=== PATIENT | female | born 1940 | race Caucasian/White ===

== ENCOUNTER 2019-09-28 19:33 | Inpatient (IN) | payer MEDICARE ==
[~2019-09-28] VITALS: Ht 165.1 cm; Wt 88.6 kg
--- NOTE | 2019-09-28 20:06 | PHYS DOC ---
Past History Past Medical History: Dementia, High Cholesterol, Hypertension Past Surgical History: No Surgical History Alcohol Use: None Drug Use: None Adult General Chief Complaint Chief Complaint: PSYCH EVALUATION HPI HPI Patient is a 79-year-old female who presents to the emergency department for evaluation. According to her daughter, she has a history of dementia, and since her about a month ago she has gradually been declining with mendyi isa sundowners. She tried staying with a family member but the family member was unable to care for them. She was thus placed in assisted living facility but became combative at times, exhibiting worsening signs of dementia. She was referred to the [facility] behavioral health unit, and presents to the emergency department for medical clearance this. She has no complaints, but is not able to provide any history due to underlying dementia Review of Systems Review of Systems Unable to provide review of systems secondary to dementia. Allergies Allergies Allergies Coded Allergies Type Severity Reaction Last Updated Verified No Known Drug Allergies 09/28/19 No Physical Exam Physical Exam PHYSICAL EXAM: CONSTITUTIONAL: Well developed, well nourished HEAD: normocephalic, atraumatic EENT: PERRL, EOMI. Conjunctivae normal color, sclerae non-icteric; moist mucous membranes. NECK: Supple, non-tender; no meningismus. LUNGS: Lungs CTA, breathing even and unlabored. Normal air movement. HEART: Regular rate and rhythm, no murmur CHEST: No deformity; non-tender ABDOMEN: The abdomen is soft, and non-tender, no masses or bruits. EXTREM: Normal ROM; no deformity, no calf tenderness. Normal pulses palpable in all extremities. There is no pedal edema. SKIN: No rash; no diaphoresis NEURO: Alert; normal speech, impaired cognition consistent with dementia; CN's grossly intact; strength grossly intact without focal deficit. BACK: No CVA TTP. Current Patient Data Vital Signs Vital Signs Date Time Temp Pulse Resp B/P (MAP) Pulse Ox O2 Delivery O2 Flow Rate FiO2 09/28/19 19:51 98.1 68 18 100 Room Air 09/28/19 19:49 155/76 (102) Lab Results Laboratory Tests Test 09/28/19 20:12 09/28/19 20:48 White Blood Count 10.8 x10^3/uL Red Blood Count 4.46 x10^6/uL Hemoglobin 13.6 g/dL Hematocrit 41.2 % Mean Corpuscular Volume 93 fL Mean Corpuscular Hemoglobin 30 pg Mean Corpuscular Hemoglobin Concent 33 g/dL Red Cell Distribution Width 13.0 % Platelet Count 343 x10^3/uL Neutrophils (%) (Auto) 66 % Lymphocytes (%) (Auto) 20 % Monocytes (%) (Auto) 14 % Eosinophils (%) (Auto) 0 % Basophils (%) (Auto) 0 % Neutrophils # (Auto) 7.1 x10^3uL Lymphocytes # (Auto) 2.2 x10^3/uL Monocytes # (Auto) 1.5 x10^3/uL Eosinophils # (Auto) 0.0 x10^3/uL Basophils # (Auto) 0.0 x10^3/uL Sodium Level 137 mmol/L Potassium Level 3.6 mmol/L Chloride Level 102 mmol/L Carbon Dioxide Level 25 mmol/L Anion Gap 10 Blood Urea Nitrogen 20 mg/dL Creatinine 1.0 mg/dL Estimated GFR (Cockcroft-Gault) 53.2 BUN/Creatinine Ratio 20 Glucose Level 173 mg/dL Calcium Level 9.1 mg/dL Magnesium Level 2.0 mg/dL Total Bilirubin 0.3 mg/dL Aspartate Amino Transf (AST/SGOT) 18 U/L Alanine Aminotransferase (ALT/SGPT) 23 U/L Alkaline Phosphatase 76 U/L Total Protein 7.4 g/dL Albumin 2.9 g/dL Albumin/Globulin Ratio 0.6 Urine Collection Type U cath Urine Color Yellow Urine Clarity Clear Urine pH 5.5 Urine Specific Norris >=1.030 Urine Protein Trace Urine Glucose (UA) Neg mg/dL Urine Ketones (Stick) 15 mg/dL Urine Blood Mod Urine Nitrite Neg Urine Bilirubin Neg Urine Urobilinogen Dipstick 1 mg/dL Urine Leukocyte Esterase Neg Urine RBC 6-10 /HPF Urine WBC Occ /HPF Urine Squamous Epithelial Cells Few /LPF Urine Bacteria 0 /HPF Urine Mucus Slight /LPF EKG EKG Normal sinus rhythm at a rate of 72 beats for minute, left axis deviation with APCs, left ventricular hypertrophy with repolarization abnormality, with no acute ischemic ST/T changes. Radiology/Procedures Radiology/Procedures [] Course & Med Decision Making Course & Med Decision Making Pertinent Lab studies reviewed. (See chart for details) [] Dragon Disclaimer Dragon Disclaimer This electronic medical record was generated, in whole or in part, using a voice recognition dictation system. Departure Departure: Impression: Primary Impression: Dementia with behavioral disturbance Disposition: ADMITTED INPATIENT ([facility]) Condition: STABLE Referrals: NON,STAFF (PCP) KATIANA GALDAMEZ MD Sep 28, 2019 20:06
[2019-09-28 20:25] LABS: BASO % 0 % (0-3); EOS % 0 % (0-3); HEMATOCRIT 41.2 % (36.0-47.0); HEMOGLOBIN 13.6 g/dL (12.0-15.5); LYMPH # 2.2 x10^3/uL (1.0-4.8); LYMPH % 20 % (24-48); MEAN CORPUSCULAR HEMOGLOBIN 30 pg (25-35); MEAN CORPUSCULAR HGB CONC 33 g/dL (31-37); MEAN CORPUSCULAR VOLUME 93 fL (79-100); MONO # 1.5 x10^3/uL (0.0-1.1); MONO % 14 % (0-9); NEUT # 7.1 x10^3uL (1.8-7.7); NEUT % 66 % (31-73); PLATELET COUNT 343 x10^3/uL (140-400); RED BLOOD COUNT 4.46 x10^6/uL (3.50-5.40); WHITE BLOOD COUNT 10.8 x10^3/uL (4.0-11.0)
[2019-09-28 20:38] LABS: ALBUMIN 2.9 g/dL (3.4-5.0); ALBUMIN/GLOBULIN RATIO 0.6 (1.0-1.7); CALCIUM 9.1 mg/dL (8.5-10.1); GFR 53.2; POTASSIUM 3.6 mmol/L (3.5-5.1); TOTAL BILIRUBIN 0.3 mg/dL (0.2-1.0); TOTAL PROTEIN 7.4 g/dL (6.4-8.2)
[2019-09-28 21:17] LABS: BILIRUBIN,URINE NEG (NEG); CLARITY,URINE CLEAR; COLOR,URINE YELLOW; GLUCOSE,URINE NEG (NEG)
[2019-09-28 21:18] LABS: BACTERIA,URINE 0 /HPF (0-FEW); NITRITE,URINE NEG (NEG); SQUAMOUS EPITHELIAL CELL,UR FEW /LPF; UROBILINOGEN,URINE 1 mg/dL (0.2 mg/dL); WBC,URINE OCC /HPF (0-4)
--- NOTE | 2019-09-28 22:00 | NUR ---
Admission Note with Justification for Admission to [facility] Patient admitted to [facility] for protective oversight for emergency stabilization of acute psychiatric crisis. Pt admitted from: Hospital ER Mode of arrival: EMS Accompanied By: [facility] Staff Precipitating behaviors that initiated intake and admission:hitting and pushing staff, refusing food and cares, exit seeking Description of failure of out patient attempts at stabilization in previous setting list behavior and medication trials:medication changes Behaviors and assessment findings upon admission: non-verbal, calm, cooperative with assessment, occasionally laughed Plan: Admit for protective oversight for adjustment and stabilization of medications, behaviors and mood. Intense treatment regimen including groups, medication adjustments, therapy, consistent regimen for ADL's, self care, and sleep hygiene. Daily monitoring by Inpatient staff, Psychiatry, and Medical Physician.
[2019-09-28] MEDS ORDERED: HALO2TAB PO (22:26)
[2019-09-28] MEDS ORDERED: ATEN50TA PO (22:26)
[2019-09-28] MEDS ORDERED: TRAZ-120 PO (22:26)
[2019-09-28] MEDS ORDERED: ACETAMINOPHEN 325 MG TABLET PO PRN (22:30)
[2019-09-28] MEDS ORDERED: MAGNESIUM HYDROXIDE 2,400 MG/30 ML ORAL.SUSP. PO PRN (22:30)
[2019-09-28] MEDS ORDERED: MAG HYDROX/AL HYDROX/SIMETH 30 ML ORAL.SUSP PO PRN (22:30)
[2019-09-28] MEDS ORDERED: METHYL SALICYLATE/MENTHOL TOPICAL OINTMENT 57GM TUBE. TP PRN (22:30)
[2019-09-28 22:34] VITALS: BP 143/77
--- NOTE | 2019-09-29 01:50 | EKG ---
[address] [address] Test Date: 2019-09-28 Test Time: 20:00:04 Pat Name: MALORIE JON Department: Room: Gender: F Mascara Molder: : 1940 Requested By: KATIANA GALDAMEZ Order Number: [id number] Reading MD: Measurements Intervals Mitchell Rate: 72 P: 43 GA: 140 QRS: -24 QRSD: 96 T: 137 QT: 388 QTc: 426 Interpretive Statements SINUS RHYTHM ATRIAL PREMATURE COMPLEX(ES) LEFTWARD AXIS LVH WITH REPOLARIZATION ABNORMALITY ABNORMAL ECG RI6.01 No previous ECG available for comparison
[2019-09-29 06:02] VITALS: BP 153/81
[2019-09-29 07:17] LABS: BASO % 0 % (0-3); EOS # 0.1 x10^3/uL (0.0-0.7); EOS % 1 % (0-3); HEMATOCRIT 41.1 % (36.0-47.0); HEMOGLOBIN 13.5 g/dL (12.0-15.5); LYMPH # 2.5 x10^3/uL (1.0-4.8); LYMPH % 26 % (24-48); MEAN CORPUSCULAR HEMOGLOBIN 30 pg (25-35); MEAN CORPUSCULAR HGB CONC 33 g/dL (31-37); MEAN CORPUSCULAR VOLUME 91 fL (79-100); MONO # 1.3 x10^3/uL (0.0-1.1); MONO % 13 % (0-9); NEUT # 5.8 x10^3uL (1.8-7.7); NEUT % 60 % (31-73); PLATELET COUNT 354 x10^3/uL (140-400); RED BLOOD COUNT 4.52 x10^6/uL (3.50-5.40); RED CELL DISTRIBUTION WIDTH 12.9 % (11.5-14.5); WHITE BLOOD COUNT 9.7 x10^3/uL (4.0-11.0)
[2019-09-29 07:24] LABS: ALBUMIN 2.8 g/dL (3.4-5.0); ALBUMIN/GLOBULIN RATIO 0.6 (1.0-1.7); CALCIUM 9.3 mg/dL (8.5-10.1); CREATININE 0.8 mg/dL (0.6-1.0); GFR 68.8; MAGNESIUM 1.9 mg/dL (1.8-2.4); POTASSIUM 3.4 mmol/L (3.5-5.1); TOTAL BILIRUBIN 0.5 mg/dL (0.2-1.0); TOTAL PROTEIN 7.3 g/dL (6.4-8.2)
[2019-09-29] MEDS: ATENOLOL 50 MG TABLET PO SCH (08:42)
[2019-09-29] MEDS ORDERED: HALOPERIDOL 1 MG TABLET PO SCH (09:00)
--- NOTE | 2019-09-29 13:40 | NUR ---
PSYCHOSOCIAL ASSESSMENT ADMISSION DATE: 09/28/19 CONTACT INFORMATION: DPOA/Guardian Contact Name: Lana Otero Contact Address: [place] [address] Contact Phone #: ETHNIC ORIGIN: REASONS FOR ADMISSION: Aggressive Combative Confusion/Disoriented Poor impulse control ADDITIONAL ADMISSION COMMENTS: According to the intake, pt hit staff during the shower, pushing others, refusing cares, refusing to eat/drink, exit seeking looking for her "Dad". REASON FOR ADMISSION IN PATIENT/FAMILY'S OWN WORDS: She has had a lot of changes in the last month to month in a half. Just not coping well and having behaviors. PATIENT/FAMILY EXPECTATIONS FOR ADMISSION: Medication and behavioral management LIVING SITUATION: Patient lives with: Assisted Living Other living arrangements: Contact Name: Alecia Reina Contact Address: [address]; [place] [address] Contact Phone #: Contact Fax #: FAMILY RELATIONS: Marital Status: # of Marriages: 1 # of Children: [address] [facility] Family Support: Concerned Involved in [place] Planning Additional Comments r/t Family: Pt was to her , whom she called "Dad" for over 66 years. Pt her at the age of 13. Pt ended up and didn't finish her high school year. Pt had 4 children 3 girls and 1 son, in which her son has passed due to a bad head injury. All 3 daughters are highly involved. Pt August 20 from a sudden heart attack. SIGNIFICANT PSYCHIATRIC/MEDICAL HISTORY: Psychiatric/Treatment History: This is pt first psychiatric admission anywhere. Pt was dx with Alzheimers by a neurologist 10 years ago. Pertinent Family History: Pt family has more medical concerns: cancer and heart trouble but no Dementia hx. HISTORICAL DATA: Childhood Environment: Other-see below Childhood Environment Additional Comments: Pt dtr couldn't describe pt childhood, but was able to report that pt was one of 3 children. Both of pt brothers have passed: 1 from Cancer and the other from 1 a heart attack. Pt father at the age of 40 from Lung Cancer and her Mother at 68 from Cancer (type unknown). Psychological Abuse: None Additional Comments: Drug Abuse History last 12 months: No Comment: PERSONAL HISTORY: Vocational history: [employer] -- pt has never worked. service: N was Sabianist background: Raised [employer] but is not practicing. Sexual orientation: Heterosexual Educational Level: Did not graduate high school. Past/Present Interests/Hobbies: Color, music (old country), nursery rhymes, magazines and recipes. Financial support/resources: Social Security Monthly income: Person handling finances: Pt dtrSammi, handles all finances. Do you have a history of legal problems: N Cultural considerations: None SOCIAL RELATIONSHIPS-CURRENT/PAST: Psychiatrist: Dr. Castellon/Dr. Sequeira -- both left practice PCP: Dr. Newton Packet STRENGTHS & WEAKNESSES: Patient's strengths: Good family support Good verbal skills Ambulatory Other patient strengths: Patient's weaknesses: Impulsive Poor social skills Physically Aggressive Other patient weaknesses: PRELIMINARY PLAN OF TREATMENT: Preliminary plan: Promote Coping Skill Improved Social Skills Medication Stabilization Monitor Med Effects Dec. Aggression Other preliminary treatment comments: DISCHARGE PLANNING: Discharge planning/disposition: Current Living Arrange. Additional discharge needs identified: Pt will plan to discharge back to [facility]. ADDITIONAL INFORMATION: Other Pertinent Data: GASTON completed PSA with pt dtrLana who reports that pt has had a slow progression with her disease, but is not sure if this is a change in progression or truly just the fact that pt is having trouble with coping. GASTON discussed treatment team and will have them participate via phone next week.
[2019-09-29 14:44] LABS: THYROID STIM HORMONE (TSH) 1.414 uIU/mL (0.358-3.740)
[2019-09-29 16:01] VITALS: BP 100/58
[2019-09-29] MEDS ORDERED: SERTRALINE 25 MG TABLET. PO SCH (17:00)
--- NOTE | 2019-09-29 17:15 | NUR ---
Patient did not answer assessment questions but allowed nurse to assess her. She took her medications floated in pudding. Patient refused to talk to Dr. Serrano and spoke minimally to Dr. Manuel. She has been mostly non-verbal this shift. She has been calm, withdrawn and quiet. Patient in wheelchair and is able to self propel in hallway as needed. Per family report Aug 2019 patient was up walking and talking. Dr. Serrano discontinued the Haldol and started her on Zoloft to start tomorrow morning.
[2019-09-29] MEDS: traZODone 50 MG TABLET. PO SCH (20:06)
[2019-09-29 20:07] LABS: THYROXINE 8.8 ug/dL (4.5-12.0)
--- NOTE | 2019-09-29 22:09 | NUR ---
Nursing note: Assumed care of pt in the day room. She was withdrawn but compliant with meds and assessment. She did not answer any of my questions. When asked about her doll she had sitting on the couch she gestured toward it and giggled. No c/o pain, no inappropriate behaviors.
--- NOTE | 2019-09-29 23:58 | PSYEV ---
DATE OF SERVICE: 09/28/2019 REASON FOR ADMISSION: This 79-year-old recently female was admitted from [facility] and she has a diagnosis of dementia and apparently was the caregiver. Since the recently, she became increasingly confused and then she was admitted to the [facility] from home on 09/23/2019. HOPSITAL COURSE: The nursing at the skilled nursing became combative, hit the staff while she was in the shower. The patient also constantly pacing, yelling, was difficult to redirect. The patient also appeared to be very scared at times. The patient also refusing to speak, mostly nonverbal communication. The patient also refusing to get out of bed for breakfast, refusing to get dressed, decreased appetite. HISTORY OF PRESENT ILLNESS: The patient apparently has had dementia for some time. Her was the caregiver. Since he recently, she became more confused, apparently family decided to stay in a skilled nursing and started having behavior problems including refusing to eat, not showering, when they tried to shower, she hit the staff and also hollering, roaming the hallways, calling out for her dad and grandpa in her room. The patient also admitted to being scared. It appears the patient also had been having visual hallucinations. The patient during the assessment, able to make eye contact, almost catatonic occasional smile, but did not speak. The patient also has a doll, she carries with her everywhere and she calls him as Mario. The patient is disconnected to her environment, decreased psychomotor activity, almost catatonia. The patient is currently on wheelchair. The patient reports since admission, she has been nonverbal, but calm, cooperative with assessment, occasionally laughed. PAST MEDICAL HISTORY: The patient has a history of Alzheimer's disease, hypercholesterolemia, hypertension. The patient also had a hysterectomy, also laparoscopic cholecystectomy and total knee arthroplasty. CURRENT MEDICATIONS: Include trazodone 50 mg at night, Haldol 1 mg b.i.d., atenolol 50 mg daily. LABORATORY DATA: The patient's lab reviewed which were all within normal range except for elevated glucose level, iron 22, TIBC 235, iron saturation 9. PSYCHOSOCIAL HISTORY: The patient was recently and the patient has 2 children, has the DPOA. The patient is a nonsmoker. No history of any substance abuse or alcohol. No history of any abuse physical, emotional or sexual. The patient otherwise not able to give much information at this point. FAMILY HISTORY: Noncontributory. MENTAL STATUS EXAMINATION: The patient appeared to be of her stated age, moderately obese, on wheelchair. The patient is holding onto doll and apparently interacting with her nonverbally. The patient able to make eye contact, but no facial expression. The patient also showed marked psychomotor retardation, almost catatonic. The patient is not able to respond to questions verbally. Several attempts to make her to speak resulted in no communication. The patient appears depressed. Occasional smile. The patient is also confused, disoriented to surroundings. The patient had initial session without any anxiety or any major behavioral change. Mostly, she was withdrawn, disconnected, blunting of affect, almost to the point of catatonic behavior. Her affect and mood showed she appears depressed. It is not clear whether she is grieving over the loss of her and also difficult to evaluate the severity of her dementia. The patient has not exhibited any confusion since she has been here. The patient slept about 4 hours last night. The patient's appetite decreased. The patient needing assistance with ADLs. The patient's memory is not testable. The patient's judgment impaired. Insight limited. STRENGTHS: Fairly in good health, supportive family. WEAKNESSES: The patient has advanced dementia and also catatonic behavior, possibly severe depression. DIAGNOSTIC IMPRESSION: AXIS I: 1. Major depression, single episode, moderate. 2. Neurocognitive disorder, most likely Alzheimer's with behavior problems, depression and catatonic behaviors. AXIS II: None. AXIS III: Hypertension, hyperlipidemia and obesity. INITIAL TREATMENT PLAN: The patient will be admitted to the ____. The patient will be seen by Dr. Feliz for physical exam. The patient will have routine lab work. The patient will continue on her current medication listed above. The patient will be evaluated daily by the psychiatrist and treat accordingly including medication change. The patient will be involved in individual therapy, group therapy, activity therapy. LENGTH OF STAY: 7-10 days. DISCHARGE CRITERIA: The patient at least able to maintain some improvement to the point that she is able to sleep well, able to eat fairly well and also medically stable. SHELLEY DE LEON MD DR: Jose JOB#: [id number] / [id number]
--- NOTE | 2019-09-30 00:53 | CONS ---
DATE OF CONSULTATION: 09/29/2019 REASON FOR CONSULTATION: Medical management. HISTORY OF PRESENT ILLNESS: The patient is an 79-year-old female patient, a resident at [facility] in [facility], who was admitted on account of being anxious at staff during shower, pushing staff, refusing care, refusing to eat or drink, exit seeking and looking for her dad. All her behavior started since admission on 09/23/2019. According to the nursing staff, her at the beginning of August, and since then, her behavior has dramatically changed, and apparently she called her dad, all this in a background of dementia with behavioral disturbances. PAST MEDICAL HISTORY: Significant for hypertension, hyperlipidemia. PAST PSYCHIATRIC HISTORY: Significant for dementia. ALLERGIES: She has no known drug allergies. MEDICATIONS: She is currently on trazodone 50 mg at bedtime, Haldol 1 mg twice a day, atenolol 50 mg daily, magnesium hydroxide for milk of magnesia 30 mL p.o. daily p.r.n. for constipation, Mylanta 15 mL after meals and acetaminophen 650 mg every 6 hours as needed. FAMILY HISTORY: Unobtainable. SOCIAL HISTORY: She apparently is , was recently admitted to [facility], has children, but the patient refusing to talk. Apparently, she was able to walk before, but she is now wheelchair bound. PHYSICAL EXAMINATION: GENERAL: When I examined her, she was somewhat pale, but not jaundiced or cyanosed. No lymphadenopathy, no thyromegaly. No jugular venous distention. No limb edema. VITAL SIGNS: Her heart rate was 73, blood pressure was 153/81, temperature was 97.4, respiratory rate was 18 and oxygen saturation was 99%. HEAD, EYES, EARS, NOSE AND THROAT: Showed she is normocephalic, atraumatic. NECK: Supple. HEART: Showed normal first and second heart sounds. No gallop or murmur. CHEST: Clear to auscultation. No crepitation or rhonchi. ABDOMEN: Distended, soft, nontender. No guarding or rigidity. No organomegaly. All hernial orifices intact. Bowel sounds normal. NEUROLOGIC: She seems to be grossly intact. All her cranial nerves are normal. She was able to talk and says few words at times. EXTREMITIES: She moves all extremities without difficulty; however, she is mostly wheelchair bound, although according to nursing staff, she is able to walk with a walker. LABORATORY DATA: Showed a white cell count 9700, hemoglobin 13.5, hematocrit 41, MCV 91, and platelet count 354,000. Her serum sodium was 139, potassium 3.4, chloride 103, bicarbonate 26, anion gap of 10, BUN 17, creatinine 0.8, estimated GFR was 69 mL per minute. Her glucose 150, calcium was 9.3, magnesium was 1.2. Her serum iron, TIBC and iron saturation are all low consistent with anemia of chronic disease. Her total bilirubin, AST, ALT, alkaline phosphatase were normal. Total protein 7.3, albumin 2.8. Serum triglycerides were 122, total cholesterol 163, LDL was 95, VLDL 24, HDL cholesterol was 44 and ratio was 3 and TSH was 1.414. Her urinalysis was essentially unremarkable. The urine was negative for nitrite, leukocyte esterase. There are occasional wbc's and no bacteria. IMPRESSION: In summary, this is an 80-year-old female patient, a resident at [facility], who was admitted on account of being anxious, hitting staff during shower, pushing staff, refusing cares, refusing to eat and drink, exit seeking, and looking for her dad, who in reality is her who recently, all this in a background of dementia with behavioral disturbances. She is here for inpatient psychiatric stabilization. Medically, she seemed to be mostly stable. Her vital signs are stable and her urinalysis was unremarkable. Her chemistry was also mostly stable and within acceptable range. Her potassium is slightly low. I will start her on potassium supplement. Thank you, Dr. Wilson, for allowing me to participate in the care of patient. BIN ESPINOZA MD DR: YFN/charity JOB#: [id number] / [id number]
[2019-09-30 01:07] LABS: HEMOGLOBIN A1C 7.3 % (4.8-5.6)
[2019-09-30 06:07] VITALS: BP 143/77
[2019-09-30] MEDS: ATENOLOL 50 MG TABLET PO SCH (08:37)
[2019-09-30] MEDS: SERTRALINE 25 MG TABLET. PO SCH (08:38)
--- NOTE | 2019-09-30 14:00 | NUR ---
Social work student (SWS) and patient spent an hour together. Pt was very calm and pleasant. She would occasionally say phrases or ask questions that SWS could not understand. When asked a direct question, pt would at times respond or stare blankly. We spent some time using [employer] to build towers and drawing with a highlighter. SWS wrote the pt's name on a piece of paper and pt showed no recognition. Pt had bright alert eyes and smiled frequently.
--- NOTE | 2019-09-30 15:13 | NUR ---
Activity Therapy Assessment Completed based on observation, notes, and attempted interview. Pt. was in the day room before afternoon group. Pt. was sitting in her wheelchair with her baby doll off to the side. When therapist introduced self, Pt. said 'will you get more of these for Grace?' and lifted up a box of Kleenex. Therapist brought over another box and Pt. smiled. Pt. removed her dentures and set them on the Kleenex. Pt. did not respond to any of therapist's attempts to further engage. Pt. has been calm, quiet, and compliant since admission. Pt. rarely speaks or responds to prompting and has yet to engage with group activities. Pt. is from [facility] in [place], [place], and became a in August after her . Pt. family states that she referred to her as 'Dad' or 'Daddy' and she often looks for him. 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 Her daughters, Sammi and Lana, state that Pt. enjoys coloring, old country music, nursery rhymes, magazines and recipes. Pt. responds to name and environment at times and seems 'stuck' in memories at other times. Initial goal aimed to increase socialization and sensory stimulation: Pt. will participate in three sensory stimulation activities before discharge. Addendum: 10/15/19 at 0924 by OBI REAVES ACT Goal changed 10/14: Pt. will participate in at least three individual or Activity Therapy groups per week
[2019-09-30 15:35] VITALS: BP 143/79
--- NOTE | 2019-09-30 16:00 | NUR ---
Pt up for meals in wc. Has been mostly non verbal. Occasionally laughs out loud or has spoke short sentences. Spit out meds several times this am. Will crush meds from now on. Paged Dr SUAREZ for order for xray of R foot. Noted during therapy yesterday pt as unable to bear wt on foot.
--- NOTE | 2019-09-30 17:33 | RAD ---
3 view study of the right foot Clinical indications: Unable to bear weight. Pain. FINDINGS: No acute fracture is seen. There is lateral subluxation of the second and third proximal phalanges with respect to the second and third metatarsal bones. No lytic process evident. No periosteal reaction is evident. Small plantar spur of the calcaneus is seen. IMPRESSION: No acute fracture or osteomyelitis. Subluxation of the second and third metatarsal phalangeal joints. Electronically signed by: Art Green MD (09/30/2019 5:31 PM) [place] [id number]
--- NOTE | 2019-09-30 18:30 | NUR ---
Staff stated that pt needs significant verbally cueing to eat. Is easily distracted. Xray results obtained with no fx noted.
[2019-09-30] MEDS: traZODone 50 MG TABLET. PO SCH (19:49)
--- NOTE | 2019-09-30 22:28 | NUR ---
Nursing note: Assumed care of pt in the day room. She was pleasant but confused. She took meds whole, only had one, but was briefly irritated when I gave it to her. She doesn't interact much with staff or peers, usually non-verbal but occasionally giggles. No s/s or c/o pain. Alert to name only.
--- NOTE | 2019-10-01 01:27 | PN ---
DATE: 09/30/2019 SUBJECTIVE: The patient was seen today, met with the staff, chart reviewed. The patient still withdrawn. Marked blunting of affect, able to make eye contact. The patient was able to respond to questions, mostly monosyllabic answers. The patient's affect is slightly improved. The patient still has significant problems with memory. OBSERVATION: VITAL SIGNS: Temperature 97.5, blood pressure 143/77, pulse 68, respiration 18, O2 sat 98%. GENERAL: Slept about 4 hours last night. LABORATORY DATA: The patient's lab reviewed. The patient's hemoglobin A1c 7.3. The patient has low iron at 22. MEDICATIONS: Reviewed, currently on Zoloft 25 mg daily, trazodone 50 mg at night. The patient is on wheelchair. No recent falls. ASSESSMENT: 1. Major depression, single episode, moderate. 2. Neurocognitive disorder, most likely Alzheimer's with behavior problems, depression and catatonic behaviors. TREATMENT PLAN: Continue with the current medications. LENGTH OF STAY: 7-10 days. SHELLEY DE LEON MD DR: QUEENIE/charity JOB#: [id number] / [id number]
[2019-10-01 06:17] VITALS: BP 134/82
[2019-10-01] MEDS: SERTRALINE 25 MG TABLET. PO SCH (08:21)
[2019-10-01] MEDS: ATENOLOL 50 MG TABLET PO SCH (08:21)
[2019-10-01 15:40] VITALS: BP 134/84
--- NOTE | 2019-10-01 16:44 | NUR ---
Pt up for meals in . Has been ambulatory with staff. No c/o foot pain. Pleasantly confused. Compliant with meds and cares.
[2019-10-01] MEDS: traZODone 50 MG TABLET. PO SCH (21:13)
--- NOTE | 2019-10-02 04:16 | NUR ---
Nursing Note The patient was located in her room for her assessment and medication. The patient took her medication whole and was compliant during cares. The patient was mostly non verbal during her assessment but was not resistive. The patient is currently sleeping in her room.
[2019-10-02 05:54] VITALS: BP 138/80
[2019-10-02] MEDS: SERTRALINE 25 MG TABLET. PO SCH (08:25)
[2019-10-02] MEDS: ATENOLOL 50 MG TABLET PO SCH (08:26)
[2019-10-02 16:16] VITALS: BP 130/82
--- NOTE | 2019-10-02 18:11 | NUR ---
pt has been more subdued today. Did not eat breakfast. Dtr here at noon. Could not get pt to eat lunch. Pt laid down. Was more awake at supper. Does not verbalize most times.
[2019-10-02] MEDS: traZODone 50 MG TABLET. PO SCH (20:16)
[2019-10-03 05:32] VITALS: BP 145/70
[2019-10-03] MEDS: SERTRALINE 25 MG TABLET. PO SCH (08:25)
[2019-10-03] MEDS: ATENOLOL 50 MG TABLET PO SCH (08:26)
--- NOTE | 2019-10-03 09:59 | PN ---
DATE: 10/01/2019 SUBJECTIVE: The patient was seen today, met with the staff, chart reviewed. The patient continues to be withdrawn, mostly noncommunicative, occasionally able to hold a conversation, mostly monosyllabic answers. The patient is having difficulty interacting with the staff and residents. The patient does have significant problems with concentration and thinking. OBSERVATION: VITAL SIGNS: Temperature 97.7, blood pressure 134/82, pulse 77, respirations 22, O2 sat 95%. GENERAL: Slept about 6 hours last night. The patient's appetite is fair. The patient is needing assistance with the ADLs. The patient is difficult to redirect at times. The patient has not exhibited any major behavior problems. MEDICATIONS: The patient's current medications include trazodone 50 mg at night. The patient's Zoloft was increased to 50 mg from 25 mg daily. The patient reports no falls. ASSESSMENT: 1. Major depression, single episode, moderate. 2. Neurocognitive disorder, most likely Alzheimer's with behavior problems, depression and catatonic behaviors. TREATMENT PLAN: Continue with the current medications and treatment. LENGTH OF STAY: 7-10 days. SHELLEY DE LEON MD DR: QUEENIE/charity JOB#: [id number] / [id number]
--- NOTE | 2019-10-03 09:59 | PN ---
DATE: 10/02/2019 SUBJECTIVE: The patient was seen today, met with the staff, chart reviewed. The patient's behavior continues to fluctuate. Today, she is withdrawn, even does not want to open her eyes, decreased psychomotor activity. Staff reports no major behavior problems and she is not interactive with the staff or residents. The patient responds with monosyllabic answers and also inappropriate laughter at times. The patient has significant cognitive deficits. OBSERVATION: VITAL SIGNS: Temperature 97.4, blood pressure 138/80, pulse 61, respirations 20, O2 sat 94%. Slept about 6-1/2 hours last night. The patient's appetite is fair. The patient needs to be supervised. The patient needing assistance with ADLs. The patient mostly on wheelchair. The patient is able to get up, but still is a fall risk. CURRENT MEDICATIONS: Zoloft 25 mg daily, trazodone 50 mg at night. The patient is also on wheelchair. ASSESSMENT: 1. Major depression, single episode, moderate. 2. Neurocognitive disorder, most likely Alzheimer's with behavior problems, depression and catatonic behaviors. TREATMENT PLAN: Continue with the current medications. Continue to encourage to participate in activities. LENGTH OF STAY: 7-10 days. SHELLEY DE LEON MD DR: QUEENIE/charity JOB#: [id number] / [id number]
--- NOTE | 2019-10-03 14:18 | NUR ---
Pt in dining room for morning meds and assessment. Pt mostly non-verbal, would laugh a little when this nurse would ask her orientation questions. Pt calm and compliant. No agitation or aggression noted.
[2019-10-03 15:33] VITALS: BP 140/84
[2019-10-03] MEDS: traZODone 50 MG TABLET. PO SCH (20:34)
--- NOTE | 2019-10-03 23:11 | NUR ---
Pt sitting in day room, watching movie at shift change. Pt calm, pleasant, and smiling, more talkative this evening. Pt cooperative with assessment and compliant with medications administered crushed in pudding.
--- NOTE | 2019-10-04 00:43 | PN ---
DATE: 10/03/2019 SUBJECTIVE: The patient was seen today, met with the staff, chart reviewed. The patient apparently not presenting with any problems, but the patient is noncommunicative most of the time, except for monosyllabic answers. The patient also has a marked psychomotor retardation and occasionally smiles. The patient also has significant problems with cognitive deficits. The patient is not able to engage in any interaction with the staff or residents. The patient likes to be left alone. The patient also was not able to follow directions. The patient also needing assistance with the ADLs. The patient tried to walk occasionally, but she is unsteady with her gait. OBSERVATION: VITAL SIGNS: Temperature 97.8, blood pressure 145/70, pulse 59, respirations 20, O2 sat 97%. Slept about 7 hours last night. The patient's appetite is fair. The patient is having difficulty engaging in any kind of activities. The patient is slow to respond to questions and also decreased psychomotor activity. MEDICATIONS: The patient's current medications include Zoloft 25 mg daily, trazodone 50 mg at night. The patient is not having any side effects. ASSESSMENT: 1. Major depression, single episode, moderate. 2. Neurocognitive disorder, most likely Alzheimer's, with behavior problems, depression, catatonic behaviors. PLAN: To continue with the treatment. LENGTH OF STAY: 7-10 days. SHELLEY DE LEON MD DR: QUEENIE/charity JOB#: [id number] / [id number]
[2019-10-04 05:24] VITALS: BP 134/59
--- NOTE | 2019-10-04 08:13 | NUR ---
Patient slept in quiet room. He became combative with staff while staff was attempting to assist him to get dressed. Patient threatening staff and swinging at staff but is very unsteady on his feet. Patient assisted to sit down on mats. Patient will eat breakfast in [facility]. Addendum: 10/04/19 at 0816 by LARA GAYLE RN wrong patient.
[2019-10-04] MEDS: SERTRALINE 25 MG TABLET. PO SCH (08:40)
[2019-10-04] MEDS: ATENOLOL 50 MG TABLET PO SCH (08:40)
--- NOTE | 2019-10-04 10:54 | NUR ---
Patient ate a yogurt and a pudding at breakfast. Medications initially administered to patient whole, with a spoon. Patient spit medications into a tissue. Medications then offered crushed in vanilla pudding and patient was compliant. Patient up in wheelchair, was cooperative and calm in shower.
--- NOTE | 2019-10-04 11:00 | NUR ---
Patient was showered with assist x1. She was cooperative and calm. No aggressive or combative behaviors were observed.
[2019-10-04] MEDS: CHOLECALCIFEROL (VITAMIN D3) 50,000 UNIT CAPSULE PO SCH (13:27)
[2019-10-04] MEDS: POTASSIUM CHLORIDE 20 MEQ TABLET.ER. PO SCH (13:27)
--- NOTE | 2019-10-04 13:45 | NUR ---
SW received call from pt dtr about participating in tx team on . SW informed pt dtr that tx team is actually moved to Thursday and that it would start around 11:15. Pt dtr will plan to be on the unit around 11:45 and wait to participate in team in person.
[2019-10-04 15:56] VITALS: BP 135/72
[2019-10-04] MEDS: traZODone 50 MG TABLET. PO SCH (20:18)
--- NOTE | 2019-10-04 20:53 | NUR ---
Pt sitting in day room, visiting with peer at shift change. Pt calm, pleasant, and interactive. Pt cooperative with assessment and compliant with HS medication administered whole.
--- NOTE | 2019-10-04 22:08 | PDOC ---
Exam Note: Terry Note: Please also refer to the separate dictated note~for this date of service dictated separately.~Patient seen individually. Discussed the patient with Nursing staff reviewed the chart.~Reviewed interim history and current functioning. Reviewed vital signs,~Labs/ Radiology~and current medications noted below. Continue current treatment with the changes noted in the dictated addendum note Assessment: Vital Signs/I&O: Vital Signs Date Time Temp Pulse Resp B/P (MAP) Pulse Ox O2 Delivery O2 Flow Rate FiO2 10/04/19 15:56 97.9 65 18 135/72 (93) 96 10/04/19 05:24 Room Air I & O 10/03/19 10/03/19 10/04/19 15:00 23:00 07:00 Intake Total 600 ml 240 ml 240 ml Balance 600 ml 240 ml 240 ml Current Medications: Meds: Current Medications Medications (Trade) Dose Ordered Sig/Natanael Route PRN Reason Start Time Stop Time Status Last Admin Dose Admin Potassium Chloride (Klor-Con) 20 meq DAILYWBKFT PO 10/04/19 13:00 10/04/19 13:27 Vitamin D (Vitamin D3) 50,000 unit WEEKLY PO 10/04/19 12:45 10/04/19 13:27 I have reviewed the current psychotropics carefully including drug interactions. Risk benefit ratio favors no change other than as noted in my dictated progress note. Diagnosis: Problems: (1) Major depression single episode, in partial remission (2) Major neurocognitive disorder due to Alzheimer's disease, probable, with behavioral disturbance (3) Dementia in Alzheimer's disease with depression RAMEZ FERRER MD Oct 04, 2019 22:08
[2019-10-05 05:23] VITALS: BP 134/82
[2019-10-05] MEDS: SERTRALINE 25 MG TABLET. PO SCH (08:26)
[2019-10-05] MEDS: ATENOLOL 50 MG TABLET PO SCH (08:26)
[2019-10-05] MEDS: POTASSIUM CHLORIDE 20 MEQ TABLET.ER. PO SCH (08:27)
--- NOTE | 2019-10-05 09:34 | NUR ---
Patient was very sleepy at breakfast. She was sitting with her eyes closed but would wake up when spoken to. Patient was compliant with her medicines given in [place] boost and encouraged to drink with a straw. She has been calm with no adverse behaviors noted this day.
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
[2019-10-05 16:29] VITALS: BP 113/62
[2019-10-05] MEDS: traZODone 50 MG TABLET. PO SCH (20:43)
--- NOTE | 2019-10-05 22:22 | NUR ---
Nursing Note The patient was located in the day room for her assessment and medication pass. The patient took her medication crushed in pudding. The patient was unable to answer assessment questions other than her first name. The patient is currently sleeping in her room.
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
--- NOTE | 2019-10-05 23:29 | PDOC ---
Exam Note: Terry Note: Please also refer to the separate dictated note~for this date of service dictated separately.~Patient seen individually. Discussed the patient with Nursing staff reviewed the chart.~Reviewed interim history and current functioning. Reviewed vital signs,~Labs/ Radiology~and current medications noted below. Continue current treatment with the changes noted in the dictated addendum note Assessment: Vital Signs/I&O: Vital Signs Date Time Temp Pulse Resp B/P (MAP) Pulse Ox O2 Delivery O2 Flow Rate FiO2 10/05/19 16:29 97.4 58 16 113/62 (79) 98 10/05/19 05:23 Room Air I & O 10/04/19 10/04/19 10/05/19 14:59 22:59 06:59 Intake Total 600 ml 460 ml Balance 600 ml 460 ml Current Medications: Meds: Current Medications Medications (Trade) Dose Ordered Sig/Natanael Route PRN Reason Start Time Stop Time Status Last Admin Dose Admin Trazodone HCl (Desyrel) 25 mg QHS PO 10/05/19 21:00 10/05/19 20:43 I have reviewed the current psychotropics carefully including drug interactions. Risk benefit ratio favors no change other than as noted in my dictated progress note. 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
[2019-10-06 06:29] VITALS: BP 157/67
[2019-10-06 07:29] LABS: BASO # 0.1 x10^3/uL (0.0-0.2); BASO % 1 % (0-3); EOS # 0.2 x10^3/uL (0.0-0.7); EOS % 3 % (0-3); HEMATOCRIT 38.7 % (36.0-47.0); HEMOGLOBIN 12.8 g/dL (12.0-15.5); LYMPH # 2.1 x10^3/uL (1.0-4.8); LYMPH % 33 % (24-48); MEAN CORPUSCULAR HEMOGLOBIN 30 pg (25-35); MEAN CORPUSCULAR HGB CONC 33 g/dL (31-37); MEAN CORPUSCULAR VOLUME 91 fL (79-100); MONO # 0.8 x10^3/uL (0.0-1.1); MONO % 12 % (0-9); NEUT # 3.2 x10^3uL (1.8-7.7); NEUT % 51 % (31-73); PLATELET COUNT 354 x10^3/uL (140-400); RED BLOOD COUNT 4.24 x10^6/uL (3.50-5.40); RED CELL DISTRIBUTION WIDTH 12.9 % (11.5-14.5); WHITE BLOOD COUNT 6.3 x10^3/uL (4.0-11.0)
[2019-10-06 07:48] LABS: ALBUMIN 2.7 g/dL (3.4-5.0); ALBUMIN/GLOBULIN RATIO 0.7 (1.0-1.7); CALCIUM 8.9 mg/dL (8.5-10.1); CREATININE 0.8 mg/dL (0.6-1.0); GFR 68.8; MAGNESIUM 2.1 mg/dL (1.8-2.4); TOTAL BILIRUBIN 0.3 mg/dL (0.2-1.0); TOTAL PROTEIN 6.4 g/dL (6.4-8.2)
[2019-10-06] MEDS: POTASSIUM CHLORIDE 20 MEQ TABLET.ER. PO SCH (09:33)
[2019-10-06] MEDS: SERTRALINE 50 MG TABLET. PO SCH (09:33)
[2019-10-06 09:36] VITALS: BP 115/75
[2019-10-06] MEDS: ATENOLOL 50 MG TABLET PO SCH (09:36)
--- NOTE | 2019-10-06 11:00 | NUR ---
Nursing note Patient is sitting in the hallway near the [facility] nurses' station, sleeping but would wake up when spoken to. Patient is compliant with her medications, and unable to answer assessment questions other than her first name. Patient has been calm, non verbal, withdrawn to self this shift. No aggression and agitation noted at this time. Will continue to monitor.
[2019-10-06 16:18] VITALS: BP 144/60
[2019-10-06] MEDS: traZODone 50 MG TABLET. PO SCH (20:19)
--- NOTE | 2019-10-06 20:47 | PDOC ---
Exam Note: Terry Note: Please also refer to the separate dictated note~for this date of service dictated separately.~Patient seen individually. Discussed the patient with Nursing staff reviewed the chart.~Reviewed interim history and current functioning. Reviewed vital signs,~Labs/ Radiology~and current medications noted below. Continue current treatment with the changes noted in the dictated addendum note Assessment: Vital Signs/I&O: Vital Signs Date Time Temp Pulse Resp B/P (MAP) Pulse Ox O2 Delivery O2 Flow Rate FiO2 10/06/19 16:18 98.1 69 20 144/60 (88) 98 10/05/19 05:23 Room Air I & O 10/05/19 10/05/19 10/06/19 15:00 23:00 07:00 Intake Total 600 ml 120 ml Balance 600 ml 120 ml Labs: Laboratory Tests Test 10/06/19 06:52 White Blood Count 6.3 x10^3/uL (4.0-11.0) Red Blood Count 4.24 x10^6/uL (3.50-5.40) Hemoglobin 12.8 g/dL (12.0-15.5) Hematocrit 38.7 % (36.0-47.0) Mean Corpuscular Volume 91 fL (79-100) Mean Corpuscular Hemoglobin 30 pg (25-35) Mean Corpuscular Hemoglobin Concent 33 g/dL (31-37) Red Cell Distribution Width 12.9 % (11.5-14.5) Platelet Count 354 x10^3/uL (140-400) Neutrophils (%) (Auto) 51 % (31-73) Lymphocytes (%) (Auto) 33 % (24-48) Monocytes (%) (Auto) 12 % (0-9) H Eosinophils (%) (Auto) 3 % (0-3) Basophils (%) (Auto) 1 % (0-3) Neutrophils # (Auto) 3.2 x10^3uL (1.8-7.7) Lymphocytes # (Auto) 2.1 x10^3/uL (1.0-4.8) Monocytes # (Auto) 0.8 x10^3/uL (0.0-1.1) Eosinophils # (Auto) 0.2 x10^3/uL (0.0-0.7) Basophils # (Auto) 0.1 x10^3/uL (0.0-0.2) Sodium Level 140 mmol/L (136-145) Potassium Level 4.0 mmol/L (3.5-5.1) Chloride Level 106 mmol/L (98-107) Carbon Dioxide Level 30 mmol/L (21-32) Anion Gap 4 (6-14) L Blood Urea Nitrogen 18 mg/dL (7-20) Creatinine 0.8 mg/dL (0.6-1.0) Estimated GFR (Cockcroft-Gault) 68.8 BUN/Creatinine Ratio 23 (6-20) H Glucose Level 127 mg/dL (70-99) H Calcium Level 8.9 mg/dL (8.5-10.1) Magnesium Level 2.1 mg/dL (1.8-2.4) Total Bilirubin 0.3 mg/dL (0.2-1.0) Aspartate Amino Transferase (AST) 18 U/L (15-37) Alanine Aminotransferase (ALT) 26 U/L (14-59) Alkaline Phosphatase 59 U/L (46-116) Total Protein 6.4 g/dL (6.4-8.2) Albumin 2.7 g/dL (3.4-5.0) L Albumin/Globulin Ratio 0.7 (1.0-1.7) L Current Medications: Meds: Current Medications Medications (Trade) Dose Ordered Sig/Natanael Route PRN Reason Start Time Stop Time Status Last Admin Dose Admin Sertraline HCl (Zoloft) 50 mg DAILY PO 10/06/19 09:00 10/06/19 09:33 Trazodone HCl (Desyrel) 25 mg QHS PO 10/05/19 21:00 10/06/19 20:19 I have reviewed the current psychotropics carefully including drug interactions. Risk benefit ratio favors no change other than as noted in my dictated progress note. Diagnosis: Problems: (1) Major depression single episode, in partial remission (2) Dementia in Alzheimer's disease with depression (3) Major neurocognitive disorder due to Alzheimer's disease, probable, with behavioral disturbance RAMEZ FERRER MD Oct 06, 2019 20:47
[2019-10-07 05:03] VITALS: BP 154/77
[2019-10-07] MEDS: SERTRALINE 50 MG TABLET. PO SCH (07:57)
[2019-10-07] MEDS: POTASSIUM CHLORIDE 20 MEQ TABLET.ER. PO SCH (07:58)
[2019-10-07] MEDS: ATENOLOL 50 MG TABLET PO SCH (07:58)
--- NOTE | 2019-10-07 12:37 | NUR ---
WEEKLY ACTIVITY THERAPY NOTE Date of Admission: 09/28/2019 Date of AT Assessment: 09/30/2019 Goal aimed: to increase socialization and sensory stimulation Initial goal: Pt. will participate in three sensory stimulation activities before discharge. Weekly progress towards goal: achieved Group participation level: minimal in two groups and full in 1:1 on Thursday Weekly highlights: 1:1 with Act Therapist RG: watched therapist make paper airplanes and laughed when they were thrown; Pt. held crayon box, ran fingers through crayons and would offer crayons to therapist as therapist colored picture on Pt's lap. Behaviors observed: word salad or some brief sentences, enjoyed brownies last and arranged busch with support on Thursday afternoon Plan: repeat goal Beneficial adaptations: hand over hand assistance at times to initiate engagement
[2019-10-07 16:16] VITALS: BP 145/63
--- NOTE | 2019-10-07 18:56 | NUR ---
Pt up in wc or up with walker for meals. Pt non verbal. Dtr here to see pt at lunch. appetite poor. Compliant with meds. Attempted to straight cathed for UA. Pt resistive and tearful. Will try to get pt to void later.
[2019-10-07] MEDS: traZODone 50 MG TABLET. PO SCH (20:23)
--- NOTE | 2019-10-07 21:36 | PDOC ---
Exam Note: Terry Note: Please also refer to the separate dictated note~for this date of service dictated separately.~Patient seen individually. Discussed the patient with Nursing staff reviewed the chart.~Reviewed interim history and current functioning. Reviewed vital signs,~Labs/ Radiology~and current medications noted below. Continue current treatment with the changes noted in the dictated addendum note Assessment: Vital Signs/I&O: Vital Signs Date Time Temp Pulse Resp B/P (MAP) Pulse Ox O2 Delivery O2 Flow Rate FiO2 10/07/19 16:16 97.9 61 20 145/63 (90) 97 Room Air I & O 10/06/19 10/06/19 10/07/19 15:00 23:00 07:00 Intake Total 440 ml 240 ml Balance 440 ml 240 ml Current Medications: I have reviewed the current psychotropics carefully including drug interactions. Risk benefit ratio favors no change other than as noted in my dictated progress note. Diagnosis: Problems: (1) Major depression single episode, in partial remission (2) Dementia in Alzheimer's disease with depression (3) Major neurocognitive disorder due to Alzheimer's disease, probable, with behavioral disturbance RAMEZ FERRER MD Oct 07, 2019 21:36
[2019-10-07 21:55] LABS: BACTERIA,URINE FEW /HPF (0-FEW); BILIRUBIN,URINE NEG (NEG); CLARITY,URINE HAZY; COLOR,URINE YELLOW; GLUCOSE,URINE NEG (NEG); NITRITE,URINE NEG (NEG); RBC,URINE OCC /HPF (0-2); SQUAMOUS EPITHELIAL CELL,UR MOD /LPF
--- NOTE | 2019-10-07 22:12 | NUR ---
Nursing Note The patient was located in the day room for her assessment and medication pass. the patient was non verbal with this nurse. The patient responded to her name and took her medication crushed in pudding. the patient is currently located in her room asleep.
--- NOTE | 2019-10-07 23:04 | PN ---
DATE: 10/06/2019 PSYCHIATRIC PROGRESS NOTE This late entry, 10/06/2019, covers elements not covered in my initial note. SUBJECTIVE: I met with the patient evening of 10/06/2019. Per nursing report, the patient slept 7 hours previous night. She was calm previous night, sleepy during the day on 10/06/2019, nonverbal. Appetite is fair, ate nothing for lunch, 30% at night. We will check a UA, make sure she does not have a UTI to account for some change in her symptoms. REVIEW OF SYSTEMS: Positive for tiredness. No CV, , pulmonary, eye, ENT system symptoms on review. Reliability poor. MENTAL STATUS EXAM: Oriented to herself. Insight, judgment, recent and remote memory, attention, concentration, fund of knowledge poor, consistent with her diagnosis mentioned in my initial note. PLAN: No change from initial note. Check UA. Rest unchanged. MAN William FERRER MD DR: JIMENA/charity JOB#: [id number] / [id number]
--- NOTE | 2019-10-07 23:05 | PN ---
DATE: 10/05/2019 PSYCHIATRIC PROGRESS NOTE This late entry 10/05/2019 covers elements not covered in my initial note. SUBJECTIVE: I met with the patient evening of 10/05/2019. The patient slept 6-3/4 hours previous night. Per YAAKOV Garcia, the patient has been drowsy during the day, ate nothing for breakfast and lunch, does drink her Boost. REVIEW OF SYSTEMS: Positive for some tiredness. No CV, , pulmonary, eye, ENT system symptoms on review. Reliability poor. MENTAL STATUS EXAM: Oriented to herself. Insight, judgment, recent and remote memory, attention, concentration, fund of knowledge poor, consistent with her diagnosis mentioned in my initial note. PLAN: Reduce the bedtime trazodone from 50 down to 25 mg at bedtime since this maybe causing some daytime sedation. After she has been on 25 mg Zoloft for 3 days, we will increase it to 50. Rest unchanged for now. RAMEZ FERRER MD DR: JIMENA/charity JOB#: [id number] / [id number]
[2019-10-08 04:57] VITALS: BP 143/75
[2019-10-08] MEDS: POTASSIUM CHLORIDE 20 MEQ TABLET.ER. PO SCH (08:36)
[2019-10-08] MEDS: ATENOLOL 50 MG TABLET PO SCH (08:36)
[2019-10-08] MEDS: SERTRALINE 50 MG TABLET. PO SCH (08:36)
[2019-10-08 16:12] VITALS: BP 155/84
--- NOTE | 2019-10-08 16:49 | NUR ---
Pt up for meals. Quiet and withdrawn. Compliant with meds and cares. Tearful prior to supper.
[2019-10-08] MEDS: traZODone 50 MG TABLET. PO SCH (20:24)
--- NOTE | 2019-10-08 21:33 | PDOC ---
Exam Note: Terry Note: Please also refer to the separate dictated note~for this date of service dictated separately.~Patient seen individually. Discussed the patient with Nursing staff reviewed the chart.~Reviewed interim history and current functioning. Reviewed vital signs,~Labs/ Radiology~and current medications noted below. Continue current treatment with the changes noted in the dictated addendum note Assessment: Vital Signs/I&O: Vital Signs Date Time Temp Pulse Resp B/P (MAP) Pulse Ox O2 Delivery O2 Flow Rate FiO2 10/08/19 16:12 97.6 66 16 155/84 (107) 99 10/07/19 16:16 Room Air I & O 10/07/19 10/07/19 10/08/19 15:00 23:00 07:00 Intake Total 480 ml 480 ml Balance 480 ml 480 ml Labs: Laboratory Tests Test 10/07/19 21:41 Urine Collection Type Unknown Urine Color Yellow Urine Clarity Hazy Urine pH 7.0 Urine Specific [place] 1.020 Urine Protein Neg (NEG-TRACE) Urine Glucose (UA) Neg mg/dL (NEG) Urine Ketones (Stick) 15 mg/dL (NEG) Urine Blood Neg (NEG) Urine Nitrite Neg (NEG) Urine Bilirubin Neg (NEG) Urine Urobilinogen Dipstick 1.0 mg/dL (0.2 mg/dL) Urine Leukocyte Esterase Mod (NEG) Urine RBC Occ /HPF (0-2) Urine WBC 11-20 /HPF (0-4) Urine Squamous Epithelial Cells Mod /LPF Urine Bacteria Few /HPF (0-FEW) Current Medications: I have reviewed the current psychotropics carefully including drug interactions. Risk benefit ratio favors no change other than as noted in my dictated progress note. Diagnosis: Problems: (1) Major depression single episode, in partial remission (2) Dementia in Alzheimer's disease with depression (3) Major neurocognitive disorder due to Alzheimer's disease, probable, with behavioral disturbance RAMEZ FERRER MD Oct 08, 2019 21:33
--- NOTE | 2019-10-08 23:35 | NUR ---
Pt located in dayroom this evening, sitting calmly. Pt mostly non-verbal, but will make one word statements occasionally. Compliant with crushed medications.
[2019-10-09 05:38] VITALS: BP 169/67
[2019-10-09] MEDS: ATENOLOL 50 MG TABLET PO SCH (08:24)
[2019-10-09] MEDS: SERTRALINE 50 MG TABLET. PO SCH (08:24)
[2019-10-09] MEDS: POTASSIUM CHLORIDE 20 MEQ TABLET.ER. PO SCH (08:24)
--- NOTE | 2019-10-09 10:37 | NUR ---
Patient was in the dining room during morning rounding, took medications crushed in pudding. Patient was withdrawn to herself. Dosing off at times in the day room. No agitation noted, pt denies pain will continue to monitor.
[2019-10-09 15:38] VITALS: BP 128/70
[2019-10-09] MEDS: traZODone 50 MG TABLET. PO SCH (19:58)
--- NOTE | 2019-10-09 21:08 | PDOC ---
Exam Note: Terry Note: Please also refer to the separate dictated note~for this date of service dictated separately.~Patient seen individually. Discussed the patient with Nursing staff reviewed the chart.~Reviewed interim history and current functioning. Reviewed vital signs,~Labs/ Radiology~and current medications noted below. Continue current treatment with the changes noted in the dictated addendum note Assessment: Vital Signs/I&O: Vital Signs Date Time Temp Pulse Resp B/P (MAP) Pulse Ox O2 Delivery O2 Flow Rate FiO2 10/09/19 15:38 97.0 63 16 128/70 (89) 93 10/07/19 16:16 Room Air I & O 10/08/19 10/08/19 10/09/19 15:00 23:00 07:00 Intake Total 360 ml 60 ml 240 ml Balance 360 ml 60 ml 240 ml Current Medications: I have reviewed the current psychotropics carefully including drug interactions. Risk benefit ratio favors no change other than as noted in my dictated progress note. Diagnosis: Problems: (1) Major depression single episode, in partial remission (2) Dementia in Alzheimer's disease with depression (3) Major neurocognitive disorder due to Alzheimer's disease, probable, with behavioral disturbance RAMEZ FERRER MD Oct 09, 2019 21:08
--- NOTE | 2019-10-09 23:50 | NUR ---
Pt located in the dayroom this evening. Pt calm and confused. Compliant with crushed medications.
[2019-10-10 05:34] VITALS: BP 166/78
[2019-10-10] MEDS: ATENOLOL 50 MG TABLET PO SCH (09:15)
[2019-10-10] MEDS: SERTRALINE 50 MG TABLET. PO SCH (09:15)
[2019-10-10] MEDS: POTASSIUM CHLORIDE 20 MEQ TABLET.ER. PO SCH (09:15)
--- NOTE | 2019-10-10 10:59 | NUR ---
Pt is calm, cooperative, compliant and confused. No agitation, no aggression, no hallucinations or delusions. Pt has been non non verbal thus far this shift. She is compliant with her medications and assessment.
--- NOTE | 2019-10-10 11:44 | PN ---
DATE: 10/08/2019 PSYCHIATRIC PROGRESS NOTE This late entry 10/08/2019 covers elements not covered in my initial note. SUBJECTIVE: I met with the patient evening of 10/08/2019. The patient slept 5-3/4 hours previous night. She is compliant with her medications, withdrawn, sits at times by herself, found to be laughing. We will check a UA for C and S, rule out urinary tract infection. REVIEW OF SYSTEMS: No CV, , pulmonary, eye, ENT system symptoms on review. She is quite withdrawn. Reliability poor. MENTAL STATUS EXAM: Oriented to herself. Insight, judgment, recent and remote memory, attention, concentration, fund of knowledge poor, consistent with her diagnosis. She is not very verbal. LABORATORY DATA: Reviewed. IMPRESSION: Unchanged from initial note. PLAN: No change from initial note. Rule out urinary tract infection. MAN William FERRER MD DR: JIMENA/charity JOB#: [id number] / [id number]
--- NOTE | 2019-10-10 11:49 | PN ---
DATE: 10/09/2019 PSYCHIATRIC PROGRESS NOTE This late entry 10/09/2019 covers elements not covered in my initial note. SUBJECTIVE: I met with the patient in the evening. The patient slept 6-1/4 hours previous night. She remains confused, withdrawn, isolative, but not aggressive. Oral intake is poor, but she does drink Boost. She waves to people as they walked by her. Denies any pain. REVIEW OF SYSTEMS: No CV, , pulmonary, eye system symptoms on review. Reliability poor. MENTAL STATUS EXAM: Oriented to herself. Insight, judgment, recent and remote memory, attention, concentration, fund of knowledge poor, consistent with her diagnosis mentioned in my initial note. PLAN: No change from initial note. MAN William FERRER MD DR: JIMENA/charity JOB#: [id number] / [id number]
--- NOTE | 2019-10-10 11:49 | PN ---
DATE: 10/09/2019 PSYCHIATRIC PROGRESS NOTE This late entry 10/09/2019 covers elements not covered in my initial note. SUBJECTIVE: I met with the patient evening of 10/09/2019. DICTATION ENDS HERE. MAN William FERRER MD DR: JIMENA/charity JOB#: [id number] / [id number]
--- NOTE | 2019-10-10 11:55 | PN ---
DATE: 10/07/2019 PSYCHIATRIC PROGRESS NOTE This late entry 10/07/2019 covers elements not covered in my initial note. SUBJECTIVE: I met with the patient in the evening and staffed at a treatment team meeting with the entire team earlier in the day and the patient's daughter, Sammi, attended the treatment team meeting in person. We had a lengthy discussion about the patient's diagnosis, progress, current psychotropics. She slept 7 hours. Appetite 75-100%, does drink Boost, remains nonverbal, withdrawn, confused, ate nothing for lunch, 30% dinner. REVIEW OF SYSTEMS: No CV, , pulmonary, eye, ENT system symptoms on review. Reliability poor. MENTAL STATUS EXAM: Oriented to herself. Insight, judgment, recent and remote memory, attention, concentration, fund of knowledge poor, consistent with her diagnosis mentioned in my initial note. She is quite withdrawn. LABORATORY DATA: Reviewed. IMPRESSION: Unchanged from initial note. PLAN: No change from initial note. RAMEZ FERRER MD DR: JIMENA/charity JOB#: [id number] / [id number]
[2019-10-10 16:20] VITALS: BP 151/89
[2019-10-10] MEDS: traZODone 50 MG TABLET. PO SCH (19:39)
--- NOTE | 2019-10-10 21:31 | PDOC ---
Exam Note: Terry Note: Please also refer to the separate dictated note~for this date of service dictated separately.~Patient seen individually. Discussed the patient with Nursing staff reviewed the chart.~Reviewed interim history and current functioning. Reviewed vital signs,~Labs/ Radiology~and current medications noted below. Continue current treatment with the changes noted in the dictated addendum note Assessment: Vital Signs/I&O: Vital Signs Date Time Temp Pulse Resp B/P (MAP) Pulse Ox O2 Delivery O2 Flow Rate FiO2 10/10/19 16:20 97.2 60 16 151/89 (109) 98 10/07/19 16:16 Room Air I & O 10/09/19 10/09/19 10/10/19 15:00 23:00 07:00 Intake Total 600 ml 240 ml Balance 600 ml 240 ml Current Medications: I have reviewed the current psychotropics carefully including drug interactions. Risk benefit ratio favors no change other than as noted in my dictated progress note. Diagnosis: Problems: (1) Major depression single episode, in partial remission (2) Dementia in Alzheimer's disease with depression (3) Major neurocognitive disorder due to Alzheimer's disease, probable, with behavioral disturbance RAMEZ FERRER MD Oct 10, 2019 21:31
--- NOTE | 2019-10-10 23:12 | NUR ---
Nursing Note The patient was located in the day room for her assessment and medication pass. The patient took her medication crushed in pudding. The patient was non verbal but did respond when this nurse used her name. The patient was compliant with HS cares and is currently sleeping in bed.
[2019-10-11 05:33] VITALS: BP 138/81
[2019-10-11] MEDS: CHOLECALCIFEROL (VITAMIN D3) 50,000 UNIT CAPSULE PO SCH (08:51)
[2019-10-11] MEDS: POTASSIUM CHLORIDE 20 MEQ TABLET.ER. PO SCH (08:52)
[2019-10-11] MEDS: ATENOLOL 50 MG TABLET PO SCH (08:52)
[2019-10-11] MEDS: SERTRALINE 50 MG TABLET. PO SCH (08:52)
--- NOTE | 2019-10-11 11:36 | NUR ---
Patient was in the dining room during morning rounding. Took medications crushed in pudding allowed for morning assessment. Patient has been withdrawn to herself. Denies pain, no agitation noted. Patient is currently sitting in the day room with her eyes closed. Will continue to monitor.
[2019-10-11 16:11] VITALS: BP 136/82
[2019-10-11] MEDS: traZODone 50 MG TABLET. PO SCH (21:28)
--- NOTE | 2019-10-11 21:29 | PDOC ---
Exam Note: Terry Note: Please also refer to the separate dictated note~for this date of service dictated separately.~Patient seen individually. Discussed the patient with Nursing staff reviewed the chart.~Reviewed interim history and current functioning. Reviewed vital signs,~Labs/ Radiology~and current medications noted below. Continue current treatment with the changes noted in the dictated addendum note Assessment: Vital Signs/I&O: Vital Signs Date Time Temp Pulse Resp B/P (MAP) Pulse Ox O2 Delivery O2 Flow Rate FiO2 10/11/19 16:11 98.8 56 20 136/82 (100) 96 10/07/19 16:16 Room Air I & O 10/10/19 10/10/19 10/11/19 15:00 23:00 07:00 Intake Total 440 ml 270 ml Balance 440 ml 270 ml Current Medications: I have reviewed the current psychotropics carefully including drug interactions. Risk benefit ratio favors no change other than as noted in my dictated progress note. Diagnosis: Problems: (1) Major depression single episode, in partial remission (2) Dementia in Alzheimer's disease with depression (3) Major neurocognitive disorder due to Alzheimer's disease, probable, with behavioral disturbance RAMEZ FERRER MD Oct 11, 2019 21:29
[2019-10-12 05:58] VITALS: BP 138/71
[2019-10-12] MEDS: POTASSIUM CHLORIDE 20 MEQ TABLET.ER. PO SCH (08:32)
[2019-10-12] MEDS: SERTRALINE 50 MG TABLET. PO SCH (08:32)
[2019-10-12] MEDS: ATENOLOL 50 MG TABLET PO SCH (08:32)
--- NOTE | 2019-10-12 14:39 | NUR ---
Patient is in the dining room for assessment and medication. She is flat, blunted but compliant. Takes her medication crushed with pudding. She has been in the day room or the dining room for most of the day, but she does not interact with peers or staff. No agitation. No c/o or s/s of pain or discomfort.
[2019-10-12 15:52] VITALS: BP 119/67
--- NOTE | 2019-10-12 18:46 | PN ---
DATE: 10/10/2019 PSYCHIATRIC PROGRESS NOTE This late entry 10/10/2019 covers elements not covered in my initial note. SUBJECTIVE: I met with the patient in the evening. Per Maki RN, the patient slept 7-1/4 hours previous night. She remains confused, wandering, somewhat withdrawn, smiling as I met with her individually, but not very verbal. REVIEW OF SYSTEMS: No CV, , pulmonary, eye, ENT system symptoms on review. Reliability poor. MENTAL STATUS EXAM: Oriented to herself. Insight, judgment, recent and remote memory, attention, concentration, fund of knowledge poor, consistent with her diagnosis mentioned in my initial note. PLAN: No change from initial note. RAMEZ FERRER MD DR: JIMENA/charity JOB#: [id number] / [id number]
--- NOTE | 2019-10-12 18:58 | PN ---
DATE: 10/11/2019 PSYCHIATRIC PROGRESS NOTE This late entry 10/11/2019 covers elements not covered in my initial note. SUBJECTIVE: I met with the patient in the evening. The patient slept 7-3/4 hours previous night. She is relatively nonverbal. Often verbal responses 1 word but she was smiling as I met with her, still verbally very limited. Takes her medications compliant, slept well. REVIEW OF SYSTEMS: No CV, , pulmonary, eye, ENT system symptoms on review. Reliability poor. MENTAL STATUS EXAM: Oriented to herself. Insight, judgment, recent and remote memory, attention, concentration, fund of knowledge poor, consistent with her diagnosis mentioned in my initial note. PLAN: No change from initial note. MAN William FERRER MD DR: JIMENA/charity JOB#: [id number] / [id number]
[2019-10-12] MEDS: traZODone 50 MG TABLET. PO SCH (20:47)
--- NOTE | 2019-10-12 21:50 | PDOC ---
Exam Note: Terry Note: Please also refer to the separate dictated note~for this date of service dictated separately.~Patient seen individually. Discussed the patient with Nursing staff reviewed the chart.~Reviewed interim history and current functioning. Reviewed vital signs,~Labs/ Radiology~and current medications noted below. Continue current treatment with the changes noted in the dictated addendum note Assessment: Vital Signs/I&O: Vital Signs Date Time Temp Pulse Resp B/P (MAP) Pulse Ox O2 Delivery O2 Flow Rate FiO2 10/12/19 15:52 97.5 60 16 119/67 (84) 98 10/12/19 05:58 Room Air I & O 10/11/19 10/11/19 10/12/19 15:00 23:00 07:00 Intake Total 720 ml 600 ml Balance 720 ml 600 ml Current Medications: I have reviewed the current psychotropics carefully including drug interactions. Risk benefit ratio favors no change other than as noted in my dictated progress note. Diagnosis: Problems: (1) Major depression single episode, in partial remission (2) Dementia in Alzheimer's disease with depression (3) Major neurocognitive disorder due to Alzheimer's disease, probable, with behavioral disturbance RAMEZ FERRER MD Oct 12, 2019 21:50
--- NOTE | 2019-10-12 23:52 | NUR ---
Nsg Note: Patient was in day room at time of medication administration and assessments. Patient was sitting quietly and was calm, cooperative and compliant with all cares. Patient hypoverbal and flat. No other notable behaviors at this time.
[2019-10-13 05:24] VITALS: BP 123/63
[2019-10-13 07:39] LABS: BASO # 0.1 x10^3/uL (0.0-0.2); BASO % 1 % (0-3); EOS # 0.2 x10^3/uL (0.0-0.7); EOS % 2 % (0-3); HEMATOCRIT 38.1 % (36.0-47.0); HEMOGLOBIN 12.6 g/dL (12.0-15.5); LYMPH # 2.1 x10^3/uL (1.0-4.8); LYMPH % 27 % (24-48); MEAN CORPUSCULAR HEMOGLOBIN 30 pg (25-35); MEAN CORPUSCULAR HGB CONC 33 g/dL (31-37); MEAN CORPUSCULAR VOLUME 91 fL (79-100); MONO # 0.8 x10^3/uL (0.0-1.1); MONO % 11 % (0-9); NEUT # 4.6 x10^3uL (1.8-7.7); NEUT % 60 % (31-73); PLATELET COUNT 324 x10^3/uL (140-400); RED BLOOD COUNT 4.18 x10^6/uL (3.50-5.40); RED CELL DISTRIBUTION WIDTH 13.1 % (11.5-14.5); WHITE BLOOD COUNT 7.8 x10^3/uL (4.0-11.0)
[2019-10-13 07:51] LABS: ALBUMIN 2.8 g/dL (3.4-5.0); ALBUMIN/GLOBULIN RATIO 0.7 (1.0-1.7); CALCIUM 8.6 mg/dL (8.5-10.1); CREATININE 0.9 mg/dL (0.6-1.0); GFR 60.1; POTASSIUM 4.3 mmol/L (3.5-5.1); TOTAL BILIRUBIN 0.5 mg/dL (0.2-1.0); TOTAL PROTEIN 6.6 g/dL (6.4-8.2)
[2019-10-13] MEDS: SERTRALINE 50 MG TABLET. PO SCH (08:21)
[2019-10-13] MEDS: ATENOLOL 50 MG TABLET PO SCH (08:21)
[2019-10-13] MEDS: POTASSIUM CHLORIDE 20 MEQ TABLET.ER. PO SCH (08:21)
--- NOTE | 2019-10-13 10:40 | NUR ---
Patient was in the dining room during morning rounding, took medications crushed in pudding, allowed for morning assessment. Patient has been sitting in the day room and visiting with staff and other patients. Patient is cheerful, smiling, and waving at times. No agitation noted, will continue to monitor.
[2019-10-13 15:49] VITALS: BP 120/82
--- NOTE | 2019-10-13 21:12 | PDOC ---
Exam Note: Terry Note: Please also refer to the separate dictated note~for this date of service dictated separately.~Patient seen individually. Discussed the patient with Nursing staff reviewed the chart.~Reviewed interim history and current functioning. Reviewed vital signs,~Labs/ Radiology~and current medications noted below. Continue current treatment with the changes noted in the dictated addendum note Assessment: Vital Signs/I&O: Vital Signs Date Time Temp Pulse Resp B/P (MAP) Pulse Ox O2 Delivery O2 Flow Rate FiO2 10/13/19 15:49 98.7 56 16 120/82 (95) 95 10/13/19 05:24 Room Air I & O 10/12/19 10/12/19 10/13/19 15:00 23:00 07:00 Intake Total 560 ml Balance 560 ml Labs: Laboratory Tests Test 10/13/19 07:22 White Blood Count 7.8 x10^3/uL (4.0-11.0) Red Blood Count 4.18 x10^6/uL (3.50-5.40) Hemoglobin 12.6 g/dL (12.0-15.5) Hematocrit 38.1 % (36.0-47.0) Mean Corpuscular Volume 91 fL (79-100) Mean Corpuscular Hemoglobin 30 pg (25-35) Mean Corpuscular Hemoglobin Concent 33 g/dL (31-37) Red Cell Distribution Width 13.1 % (11.5-14.5) Platelet Count 324 x10^3/uL (140-400) Neutrophils (%) (Auto) 60 % (31-73) Lymphocytes (%) (Auto) 27 % (24-48) Monocytes (%) (Auto) 11 % (0-9) H Eosinophils (%) (Auto) 2 % (0-3) Basophils (%) (Auto) 1 % (0-3) Neutrophils # (Auto) 4.6 x10^3uL (1.8-7.7) Lymphocytes # (Auto) 2.1 x10^3/uL (1.0-4.8) Monocytes # (Auto) 0.8 x10^3/uL (0.0-1.1) Eosinophils # (Auto) 0.2 x10^3/uL (0.0-0.7) Basophils # (Auto) 0.1 x10^3/uL (0.0-0.2) Sodium Level 139 mmol/L (136-145) Potassium Level 4.3 mmol/L (3.5-5.1) Chloride Level 103 mmol/L (98-107) Carbon Dioxide Level 29 mmol/L (21-32) Anion Gap 7 (6-14) Blood Urea Nitrogen 17 mg/dL (7-20) Creatinine 0.9 mg/dL (0.6-1.0) Estimated GFR (Cockcroft-Gault) 60.1 BUN/Creatinine Ratio 19 (6-20) Glucose Level 111 mg/dL (70-99) H Calcium Level 8.6 mg/dL (8.5-10.1) Total Bilirubin 0.5 mg/dL (0.2-1.0) Aspartate Amino Transferase (AST) 19 U/L (15-37) Alanine Aminotransferase (ALT) 26 U/L (14-59) Alkaline Phosphatase 70 U/L (46-116) Total Protein 6.6 g/dL (6.4-8.2) Albumin 2.8 g/dL (3.4-5.0) L Albumin/Globulin Ratio 0.7 (1.0-1.7) L Current Medications: I have reviewed the current psychotropics carefully including drug interactions. Risk benefit ratio favors no change other than as noted in my dictated progress note. Diagnosis: Problems: (1) Major depression single episode, in partial remission (2) Dementia in Alzheimer's disease with depression (3) Major neurocognitive disorder due to Alzheimer's disease, probable, with behavioral disturbance RAMEZ FERRER MD Oct 13, 2019 21:12
[2019-10-13] MEDS: traZODone 50 MG TABLET. PO SCH (21:17)
--- NOTE | 2019-10-14 00:54 | NUR ---
Nursing Note The patient was located in the day room for her assessment and medication pass. The patient was compliant with her medication and took them crushed in pudding. The patient was very interactive this shift with staff and peers. The patient was compliant with HS cares. the patient is currently sleeping in her room.
[2019-10-14 05:17] VITALS: BP 143/63
[2019-10-14] MEDS: SERTRALINE 50 MG TABLET. PO SCH (08:34)
[2019-10-14] MEDS: ATENOLOL 50 MG TABLET PO SCH (08:34)
[2019-10-14] MEDS: POTASSIUM CHLORIDE 20 MEQ TABLET.ER. PO SCH (08:34)
[2019-10-14] MEDS ORDERED: traZODone 50 MG TABLET. PO PRN (12:30)
--- NOTE | 2019-10-14 12:48 | PN ---
DATE: 10/12/2019 This late entry of 10/12/2019 covers elements not covered in my initial note. SUBJECTIVE: I met with the patient in the evening of 10/12/2019. The patient slept 6-3/4 hours previous night. She remains confused, withdrawn, little more interactive, but very limited. She is calmer otherwise. REVIEW OF SYSTEMS: No CV, , pulmonary, eye, ENT system symptoms on review. Reliability poor. MENTAL STATUS EXAM: Oriented to herself. Insight, judgment, recent and remote memory, attention, concentration, fund of knowledge poor, consistent with her diagnosis mentioned in my initial note. PLAN: No change from initial note. MAN William FERRER MD DR: JIEMNA/charity JOB#: [id number] / [id number]
--- NOTE | 2019-10-14 12:48 | PN ---
DATE: 10/13/2019 PSYCHIATRIC PROGRESS NOTE This late entry 10/13/2019 covers elements not covered in my initial note. SUBJECTIVE: I met with the patient in the evening. The patient slept 7 hours previous night. She remains confused, withdrawn, but a little more verbally interactive, which is quite an improvement. This was evident even as I met with her and also with the nursing staff. REVIEW OF SYSTEMS: No CV, , pulmonary, eye, ENT system symptoms on review. Reliability poor. MENTAL STATUS EXAM: Oriented to herself. Insight, judgment, recent and remote memory, attention, concentration, fund of knowledge poor, consistent with her diagnosis mentioned in my initial note. PLAN: No change from initial note. RAMEZ FERRER MD DR: JIMENA/charity JOB#: [id number] / [id number]
--- NOTE | 2019-10-14 14:24 | NUR ---
WEEKLY ACTIVITY THERAPY NOTE Date of Admission: 09/28/2019 Date of AT Assessment: 09/30/2019 Goal aimed: to increase socialization and sensory stimulation Initial goal: Pt. will participate in three sensory stimulation activities before discharge. Weekly progress towards goal: achieved Group participation level: one full and one minimal in groups and one moderate individual session Weekly highlights: fully engaged in gifts and balloon bumping on Thursday Behaviors observed: similar to last week, sleepy Plan: change goal to: Pt. will participate in at least three individual or Activity Therapy groups per week Beneficial adaptations: hand over hand assistance at times to initiate engagement
--- NOTE | 2019-10-14 15:15 | NUR ---
GASTON contacted Nika at [facility] to discuss treatment team. Pt will look at discharging on Thursday. Wilfredo reports that she spoke to a nurse this morning and that Thursday will be fine if her behaviors are continuing to show improvement. GASTON will send over a packet for updates to be reviewed and call the family re: roller picker on Thursday.
--- NOTE | 2019-10-14 15:43 | NUR ---
GASTON contacted Sammi, pt dtr to discuss discharge potential for Thursday. GASTON also informed Sammi that SW spoke with Nika at [facility] and clarified that pt has not been combative with anyone to GASTON knowledge. If anything she has been calmer and the greatest trouble is with her eating and getting her intake to increase. Sammi will talk to her sister Lana to see what time they can pick pt up and call GASTON back.
[2019-10-14 15:50] VITALS: BP 142/82
--- NOTE | 2019-10-14 16:09 | NUR ---
Nursing note: Pt was in dining room for morning meds and assessment. She was compliant with her meds crushed in pudding and was cooperative with her assessment. She was not very interactive, but she did smile and laugh a lot. Pt has been in the day room for most of the day. Will continue to monitor.
[2019-10-14] MEDS: traZODone 50 MG TABLET. PO SCH (20:25)
--- NOTE | 2019-10-14 21:36 | PDOC ---
Exam Note: Terry Note: Please also refer to the separate dictated note~for this date of service dictated separately.~Patient seen individually. Discussed the patient with Nursing staff reviewed the chart.~Reviewed interim history and current functioning. Reviewed vital signs,~Labs/ Radiology~and current medications noted below. Continue current treatment with the changes noted in the dictated addendum note Assessment: Vital Signs/I&O: Vital Signs Date Time Temp Pulse Resp B/P (MAP) Pulse Ox O2 Delivery O2 Flow Rate FiO2 10/14/19 15:50 98.4 65 16 142/82 (102) 99 10/14/19 05:17 Room Air I & O 10/13/19 10/13/19 10/14/19 15:00 23:00 07:00 Intake Total 240 ml 60 ml Balance 240 ml 60 ml Current Medications: I have reviewed the current psychotropics carefully including drug interactions. Risk benefit ratio favors no change other than as noted in my dictated progress note. Diagnosis: Problems: (1) Major depression single episode, in partial remission (2) Dementia in Alzheimer's disease with depression (3) Major neurocognitive disorder due to Alzheimer's disease, probable, with behavioral disturbance RAMEZ FERRER MD Oct 14, 2019 21:36
--- NOTE | 2019-10-14 23:36 | NUR ---
Pt was in day room at shift change. Pt quiet and calm, withdrawn to herself this evening. Pt has also been hypo-verbal and flat. Pt cooperative with assessment and compliant with medications administered mixed in ice cream.
[2019-10-15 05:36] VITALS: BP 162/83
[2019-10-15] MEDS: POTASSIUM CHLORIDE 20 MEQ TABLET.ER. PO SCH (08:29)
[2019-10-15] MEDS: SERTRALINE 50 MG TABLET. PO SCH (08:30)
[2019-10-15] MEDS: ATENOLOL 50 MG TABLET PO SCH (08:32)
--- NOTE | 2019-10-15 11:42 | NUR ---
Pt is calm, cooperative, compliant and confused. No agitation, no aggression, no hallucinations or delusions. She is compliant with her medications and assessment.
--- NOTE | 2019-10-15 13:18 | PN ---
DATE: 10/15/2019 SUBJECTIVE: The patient was seen today, met with the staff, chart reviewed, and also covering for Dr. Wilson. Staff reports no major problems. Still withdrawn, mostly pleasant, have difficulty communicating, mostly monosyllabic answers and also decreased psychomotor activity, and also at times, blunting of affect. OBSERVATION: VITAL SIGNS: Temperature 98.4, blood pressure 162/83, pulse 57, respiration 18, O2 sat 100%. GENERAL: Slept about 7 hours last night. Appetite good. MEDICATIONS: The patient's current medications include trazodone 25 mg at night p.r.n., Zoloft 50 mg daily, trazodone 25 mg at night. The patient apparently has not shown any major side effects and also not presenting with any major medical issues. ASSESSMENT: 1. Major depression, single episode, moderate. 2. Neurocognitive disorder, most likely Alzheimer's with depression, and catatonic behaviors. SHELLEY DE LEON MD DR: QUEENIE/charity JOB#: [id number] / [id number]
[2019-10-15 15:36] VITALS: BP 146/66
[2019-10-15] MEDS: traZODone 50 MG TABLET. PO SCH (19:43)
--- NOTE | 2019-10-15 23:45 | NUR ---
Pt sitting quietly in the day room at shift change. Pt calm, pleasant when approached but stays withdrawn to herself, smiling. Pt cooperative with assessment and compliant with medication administered crushed in applesauce.
[2019-10-16 05:44] VITALS: BP 144/80
[2019-10-16] MEDS: POTASSIUM CHLORIDE 20 MEQ TABLET.ER. PO SCH (08:00)
[2019-10-16] MEDS: ATENOLOL 50 MG TABLET PO SCH (08:23)
[2019-10-16] MEDS: SERTRALINE 50 MG TABLET. PO SCH (08:24)
[2019-10-16 16:13] VITALS: BP 127/65
--- NOTE | 2019-10-16 16:35 | NUR ---
Pt calm and quiet. Appetite poor. Compliant with meds and cares.
[2019-10-16] MEDS: MEGESTROL 40 MG TABLET. PO SCH (20:23)
[2019-10-16] MEDS: ACETAMINOPHEN 500 MG TABLET PO SCH (20:23)
[2019-10-16] MEDS: traZODone 50 MG TABLET. PO SCH (20:23)
--- NOTE | 2019-10-16 21:55 | PN ---
DATE: 10/16/2019 SUBJECTIVE: The patient was seen today, met with the staff, chart reviewed. The patient is still withdrawn, isolative, blunting of affect, able to make eye contact briefly, sometimes communicate mostly monosyllabic words. The patient is still having altered psychomotor retardation. No catatonic behaviors. OBSERVATION: VITAL SIGNS: Temperature 98.1, blood pressure 144/80, pulse 58, respiration 18, O2 sat 97%. GENERAL: Slept about 7 hours last night. The patient's appetite is fair. The patient needs assistance with ADLs. The patient has difficulty following directions. The patient also slow to respond to questions. The patient also has a marked blunting of affect and significant cognitive deficits. MEDICATIONS: The patient's current medications include trazodone 25 mg at night p.r.n., Zoloft 50 mg daily, trazodone 25 mg at night. The patient is not having any side effects. LABORATORY DATA: The patient's lab reviewed. ASSESSMENT: 1. Major depression, single episode, moderate. 2. Neurocognitive disorder, most likely Alzheimer's with the depression and catatonic behaviors which is much improved. PLAN: To continue with the treatment. LENGTH OF STAY: 5-7 days. SHELLEY DE LEON MD DR: QUEENIE/charity JOB#: [id number] / [id number]
--- NOTE | 2019-10-16 22:50 | NUR ---
Nsg Note: Patient was in the day room at time of medication administration and assessments. Patient was compliant, and cooperative. Patient was a bit resistive but appeared to be more out of confusion (not swallowing pills, not drinking water on her own, etc.,) so pills were taken and crushed and given followed by water. Patient went to sleep shortly after this interaction. No other notable behaviors at this time.
[2019-10-17 05:56] VITALS: BP 144/76
[2019-10-17] MEDS: SERTRALINE 50 MG TABLET. PO SCH (08:34)
[2019-10-17] MEDS: POTASSIUM CHLORIDE 20 MEQ TABLET.ER. PO SCH (08:34)
[2019-10-17] MEDS: ACETAMINOPHEN 500 MG TABLET PO SCH ×2 (08:34→19:36)
[2019-10-17] MEDS: MEGESTROL 40 MG TABLET. PO SCH ×3 (08:34→19:36)
[2019-10-17] MEDS: ATENOLOL 50 MG TABLET PO SCH (09:00)
--- NOTE | 2019-10-17 10:38 | NUR ---
Pt is calm, cooperative, compliant and confused. She is compliant with her medications and assessment. No agitation, no aggression, no hallucinations or delusions.
--- NOTE | 2019-10-17 13:24 | NUR ---
[facility] Social Work Discharge Planning Form Patient Name LAMAR JON Admit Date: 09/28/19 DISCHARGE PLAN Discharge Destination: Pt to return to [facility] Care Assessment: N/A Level II Assessment: N/A Transportation: Pt daughters Sammi/Lana to pick pt up around 1130. Special Instructions/Notes: Please fax all discharge orders and the medication list to the fax numbers listed below. DISCHARGE TO FACILITY Facility: [facility] Address: [address] [place] [address] Contact Name: Nika: (DON): Contact Name: Please ask for the nurse caring for pt upon admission. PCP: Dr. Lamar Anderson; Pharmacy: [facility] Contact Information: [address] [place] [address] Fax: Do not accept fax; according to pharmacy laboratory technician Jazmin, everything is e-prescribed, called in or dropped off.
[2019-10-17 15:56] VITALS: BP 151/79
[2019-10-17] MEDS: traZODone 50 MG TABLET. PO SCH (19:36)
--- NOTE | 2019-10-17 21:14 | PDOC ---
Exam Note: Terry Note: Please also refer to the separate dictated note~for this date of service dictated separately.~Patient seen individually. Discussed the patient with Nursing staff reviewed the chart.~Reviewed interim history and current functioning. Reviewed vital signs,~Labs/ Radiology~and current medications noted below. Continue current treatment with the changes noted in the dictated addendum note Assessment: Vital Signs/I&O: Vital Signs Date Time Temp Pulse Resp B/P (MAP) Pulse Ox O2 Delivery O2 Flow Rate FiO2 10/17/19 15:56 97.3 62 16 151/79 (103) 99 10/15/19 05:36 Room Air I & O 10/16/19 10/16/19 10/17/19 15:00 23:00 07:00 Intake Total 260 ml 320 ml Balance 260 ml 320 ml Current Medications: I have reviewed the current psychotropics carefully including drug interactions. Risk benefit ratio favors no change other than as noted in my dictated progress note. Diagnosis: Problems: (1) Major depression single episode, in partial remission (2) Dementia in Alzheimer's disease with depression (3) Major neurocognitive disorder due to Alzheimer's disease, probable, with behavioral disturbance RAMEZ FERRER MD Oct 17, 2019 21:14
--- NOTE | 2019-10-17 22:48 | PN ---
DATE: 10/14/2019 PSYCHIATRIC PROGRESS NOTE This late entry, 10/14, covers the elements not covered in my initial note. SUBJECTIVE: I met with the patient in the evening and staffed at a treatment team meeting with the entire team earlier in the day. The patient slept 2-3/4 hours previous night. She remains confused, somewhat nonverbal, occasionally laughs. She takes her medications crushed. REVIEW OF SYSTEMS: No CV, , pulmonary, eye, ENT systems symptoms on review. Reliability poor. MENTAL STATUS EXAM: Oriented to herself. Insight, judgment, recent and remote memory, attention, concentration, fund of knowledge poor, consistent with her diagnosis mentioned in my initial note. PLAN: No change from initial note. RAMEZ FERRER MD DR: JIMENA/charity JOB#: [id number] / [id number]
[2019-10-18] MEDS ORDERED: ACET325T21 PO (00:01)
[2019-10-18] MEDS ORDERED: ACET500T68 PO (00:02)
[2019-10-18] MEDS ORDERED: CHOL500021 PO (00:04)
[2019-10-18] MEDS ORDERED: MAG30ORA2 PO (00:08)
[2019-10-18] MEDS ORDERED: MAGN2400 PO (00:09)
[2019-10-18] MEDS ORDERED: MEGE40TA PO (00:14)
[2019-10-18] MEDS ORDERED: METH28OI2 TP (00:15)
[2019-10-18] MEDS ORDERED: SERT50TA8 PO (00:17)
[2019-10-18] MEDS ORDERED: POTA20TA4 PO (00:17)
[2019-10-18] MEDS ORDERED: TRAZ-120 PO (00:20)
[2019-10-18 05:20] VITALS: BP 121/62
[2019-10-18 07:49] LABS: BASO # 0.1 x10^3/uL (0.0-0.2); BASO % 1 % (0-3); EOS # 0.2 x10^3/uL (0.0-0.7); EOS % 3 % (0-3); HEMATOCRIT 39.2 % (36.0-47.0); HEMOGLOBIN 13.3 g/dL (12.0-15.5); LYMPH % 28 % (24-48); MEAN CORPUSCULAR HEMOGLOBIN 30 pg (25-35); MEAN CORPUSCULAR HGB CONC 34 g/dL (31-37); MEAN CORPUSCULAR VOLUME 89 fL (79-100); MONO # 0.6 x10^3/uL (0.0-1.1); MONO % 8 % (0-9); NEUT # 4.2 x10^3uL (1.8-7.7); NEUT % 60 % (31-73); PLATELET COUNT 318 x10^3/uL (140-400); RED BLOOD COUNT 4.39 x10^6/uL (3.50-5.40); RED CELL DISTRIBUTION WIDTH 13.2 % (11.5-14.5); WHITE BLOOD COUNT 7.1 x10^3/uL (4.0-11.0)
[2019-10-18 07:58] LABS: ALBUMIN/GLOBULIN RATIO 0.7 (1.0-1.7); CALCIUM 9.2 mg/dL (8.5-10.1); CREATININE 0.9 mg/dL (0.6-1.0); GFR 60.1; POTASSIUM 3.9 mmol/L (3.5-5.1); TOTAL BILIRUBIN 0.4 mg/dL (0.2-1.0); TOTAL PROTEIN 7.1 g/dL (6.4-8.2)
[2019-10-18 08:55] VITALS: BP 121/62
[2019-10-18] MEDS: ATENOLOL 50 MG TABLET PO SCH (08:55)
[2019-10-18] MEDS: MEGESTROL 40 MG TABLET. PO SCH (08:55)
[2019-10-18] MEDS: ACETAMINOPHEN 500 MG TABLET PO SCH (08:55)
[2019-10-18] MEDS: SERTRALINE 50 MG TABLET. PO SCH (08:55)
[2019-10-18] MEDS: POTASSIUM CHLORIDE 20 MEQ TABLET.ER. PO SCH (08:55)
[2019-10-18] MEDS: CHOLECALCIFEROL (VITAMIN D3) 50,000 UNIT CAPSULE PO SCH (08:57)
--- NOTE | 2019-10-18 11:27 | NUR ---
Patient has been calm and pleasant this morning. She smiles and is more interactive with peers in day room and table mates at meals. Patient is up ad analy, using a walker. She takes medications crushed in chocolate pudding and followed with a drink of water. She does need to be prompted to swallow the pudding and drink the water at times. Her diet is mechanical soft related to her ill fitting dentures and she is on megace for an appetite stimulant. Patient is continent but needs to be asked/reminded to go to the bathroom and sometimes she needs to be shown where it is. Her medications were called in to [facility]. Family is scheduled to pick her up for discharge at 1130 today.
--- NOTE | 2019-10-18 11:40 | NUR ---
Transition Record was faxed to follow-up provider with the following elements: Reason for admission, procedures, tests, principal diagnosis, pending studies, patient instructions, 11/05 contact information for unit, phone number to obtain pending test results, plan for follow-up care, physician follow-up, advanced directive information, and medication list with dose, duration and instructions. This information was included in the following documents: History and physical, lab results, study results, progress notes, social work planning form, DC instruction form, patient visit summary, and medication reconciliation form. Date & time record faxed: 10/18/19 2814 Record faxed to: Alecia Kline Record discussed with/ report given to: YAAKOV Maher [phone] Medications called in to [facility] theresa Camarena to PharmacistAdrianne [phone]
--- NOTE | 2019-10-18 21:34 | PDOC ---
Exam Note: Terry Note: Please also refer to the separate dictated note~for this date of service dictated separately.~Patient seen individually. Discussed the patient with Nursing staff reviewed the chart.~Reviewed interim history and current functioning. Reviewed vital signs,~Labs/ Radiology~and current medications noted below. Continue current treatment with the changes noted in the dictated addendum note Assessment: Vital Signs/I&O: Vital Signs Date Time Temp Pulse Resp B/P (MAP) Pulse Ox O2 Delivery O2 Flow Rate FiO2 10/18/19 08:55 58 121/62 10/18/19 05:20 97.2 20 94 10/15/19 05:36 Room Air I & O 10/17/19 10/17/19 10/18/19 15:00 23:00 07:00 Intake Total 960 ml 720 ml Balance 960 ml 720 ml Labs: Laboratory Tests Test 10/18/19 07:27 White Blood Count 7.1 x10^3/uL (4.0-11.0) Red Blood Count 4.39 x10^6/uL (3.50-5.40) Hemoglobin 13.3 g/dL (12.0-15.5) Hematocrit 39.2 % (36.0-47.0) Mean Corpuscular Volume 89 fL (79-100) Mean Corpuscular Hemoglobin 30 pg (25-35) Mean Corpuscular Hemoglobin Concent 34 g/dL (31-37) Red Cell Distribution Width 13.2 % (11.5-14.5) Platelet Count 318 x10^3/uL (140-400) Neutrophils (%) (Auto) 60 % (31-73) Lymphocytes (%) (Auto) 28 % (24-48) Monocytes (%) (Auto) 8 % (0-9) Eosinophils (%) (Auto) 3 % (0-3) Basophils (%) (Auto) 1 % (0-3) Neutrophils # (Auto) 4.2 x10^3uL (1.8-7.7) Lymphocytes # (Auto) 2.0 x10^3/uL (1.0-4.8) Monocytes # (Auto) 0.6 x10^3/uL (0.0-1.1) Eosinophils # (Auto) 0.2 x10^3/uL (0.0-0.7) Basophils # (Auto) 0.1 x10^3/uL (0.0-0.2) Sodium Level 138 mmol/L (136-145) Potassium Level 3.9 mmol/L (3.5-5.1) Chloride Level 103 mmol/L (98-107) Carbon Dioxide Level 25 mmol/L (21-32) Anion Gap 10 (6-14) Blood Urea Nitrogen 15 mg/dL (7-20) Creatinine 0.9 mg/dL (0.6-1.0) Estimated GFR (Cockcroft-Gault) 60.1 BUN/Creatinine Ratio 17 (6-20) Glucose Level 177 mg/dL (70-99) H Calcium Level 9.2 mg/dL (8.5-10.1) Total Bilirubin 0.4 mg/dL (0.2-1.0) Aspartate Amino Transferase (AST) 16 U/L (15-37) Alanine Aminotransferase (ALT) 23 U/L (14-59) Alkaline Phosphatase 67 U/L (46-116) Total Protein 7.1 g/dL (6.4-8.2) Albumin 3.0 g/dL (3.4-5.0) L Albumin/Globulin Ratio 0.7 (1.0-1.7) L Current Medications: I have reviewed the current psychotropics carefully including drug interactions. Risk benefit ratio favors no change other than as noted in my dictated progress note. Diagnosis: Problems: (1) Major depression single episode, in partial remission (2) Dementia in Alzheimer's disease with depression (3) Major neurocognitive disorder due to Alzheimer's disease, probable, with behavioral disturbance RAMEZ FERRER MD Oct 18, 2019 21:34
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
--- NOTE | 2019-10-21 01:06 | PN ---
DATE: 10/17/2019 PSYCHIATRIC PROGRESS NOTE This late entry, 10/17/2019, covers elements not covered in my initial note. SUBJECTIVE: I met with the patient in the evening. Per Maki RN, the patient slept 7-1/4 hours previous night. She remains withdrawn, but appropriate, smiling more as I met with her. REVIEW OF SYSTEMS: No CV, , pulmonary, eye, ENT system symptoms on review. Reliability poor. MENTAL STATUS EXAM: Oriented to herself. Insight, judgment, recent and remote memory, attention, concentration, fund of knowledge poor, consistent with her diagnosis mentioned in my initial note. PLAN: No change from initial note. MAN William FERRER MD DR: JIMENA/charity JOB#: [id number] / [id number]
== END 2019-10-18 11:30 | DRG 885 ==
LOC: ER 19:33 → GEROPSY 22:00 → ER 22:00
PROVIDERS: ADMIT Psychiatry & Neurology Psychiatry; ATTEND Psychiatry & Neurology Psychiatry
DX: F32.1 Major depressive disorder, single episode, moderate (principal); F02.81 Dementia in other diseases classified elsewhere, unspecified severity, with behavioral disturbance; F01.51 Vascular dementia, unspecified severity, with behavioral disturbance; E78.00 Pure hypercholesterolemia, unspecified; I10 Essential (primary) hypertension; Z90.710 Acquired absence of both cervix and uterus; Z99.3 Dependence on wheelchair; Z96.659 Presence of unspecified artificial knee joint; Z82.49 Family history of ischemic heart disease and other diseases of the circulatory system; Z81.8 Family history of other mental and behavioral disorders; Z82.0 Family history of epilepsy and other diseases of the nervous system; Z79.899 Other long term (current) drug therapy; E78.5 Hyperlipidemia, unspecified; F41.9 Anxiety disorder, unspecified; G47.00 Insomnia, unspecified; G30.9 Alzheimer's disease, unspecified; F63.9 Impulse disorder, unspecified; F20.2 Catatonic schizophrenia
CPT/HCPCS: 36415; 73630; 80053; 80061; 81001; 82306; 82607; 83036; 83540; 83550; 83735; 84436; 84443; 84480; 85025; 86592; 87086; 93005; P9612; 97110; 97116; 97530; 99285-25